=== PATIENT | female | born 1995 | race Caucasian/White ===

== ENCOUNTER 2020-05-10 21:39 | Emergency (ER) | payer MEDICAID ==
[~2020-05-10] VITALS: Ht 152.4 cm; Wt 111.1 kg
[2020-05-10 21:40] VITALS: Ht 152.4 cm; Wt 111.1 kg
[2020-05-10 22:27] VITALS: BP 133/84
== END 2020-05-10 22:27 | disposition home or self-care (01) ==
LOC: ED 21:39
DX: U07.1 COVID-19 (principal); E11.9 Type 2 diabetes mellitus without complications
CPT/HCPCS: U0003-CS

== ENCOUNTER 2020-05-12 09:53 | Emergency (ER) | payer MEDICAID ==
[~2020-05-12] VITALS: Ht 152.4 cm; Wt 111.1 kg
[2020-05-12 10:11] VITALS: BP 140/91; Ht 152.4 cm; Wt 111.1 kg
== END 2020-05-12 11:19 | disposition home or self-care (01) ==
LOC: ED 09:53
DX: U07.1 COVID-19 (principal); B34.9 Viral infection, unspecified; E11.9 Type 2 diabetes mellitus without complications; Z20.89 Contact with and (suspected) exposure to other communicable diseases